=== PATIENT | female | born 2000 | race Caucasian/White ===

== ENCOUNTER 2021-01-29 10:58 | Day surgery (SDC) | payer BC ==
[~2021-01-29 10:58] MED LIST: EPINEPHrine 1 MG/ML 30 ML MDV IRR SCH; Lidocaine 1%/Sod Bicarbonate in NS 8.4% 1 ML Syringe IDERM PRN; Midazolam 1 MG/ML 2 ML SDV ONE; Propofol 200 MG/20 ML SDV ONE; Sodium Chloride 0.9% 10 ML Syringe FLUSH PRN; fentaNYL 100 MCG/2 ML SDV ONE
[2021-01-29] MEDS: Lactated Ringers 1,000 ML IV SCH ×2 (11:25→16:24)
[2021-01-29] MEDS ORDERED: Bupivacaine 0.25% 10 ML SDV ONE (11:28)
--- NOTE | 2021-01-29 11:59 | PCM.PREANE ---
Preanesthetic Assessment - Procedure Proposed Procedure: Left knee video arthroscopy with plica resection - Anesthesia/Transfusion/Family Hx Anesthesia History: Prior Anesthesia Without Reaction Family History of Anesthesia Reaction: No Transfusion History: No Prior Transfusion(s) - Review of Systems General: No Symptoms Pulmonary: No Symptoms Cardiovascular: No Symptoms Gastrointestinal: No Symptoms Neurological: No Symptoms Other: Reports: None - Physical Assessment NPO Status Date: 01/28/21 NPO Status Time: 00:00 Height: 1.83 m Weight: 83.7 kg ASA Class: 2 Mental Status: Alert & Oriented x3 Airway Class: Mallampati = 1 Dentition: Reports: Normal Dentition Thyro-Mental Finger Breadths: 3 Mouth Opening Finger Breadths: 3 ROM/Head Extension: Full Lungs: Clear to Auscultation, Normal Respiratory Effort Cardiovascular: Regular Rate, Regular Rhythm - Lab Values: Laboratory Last Values Urine HCG, Qual Negative (NEGATIVE) 01/29/21 11:05 - Allergies Allergies/Adverse Reactions: Allergies Allergy/AdvReac Type Severity Reaction Status Date / Time codeine Allergy Hives Verified 01/28/21 16:10 - Blood Blood Available: No Product(s) Available: None - Anesthesia Plan Pre-Op Medication Ordered: None - Acknowledgements Anesthesia Type Planned: General Anesthesia Pt an Appropriate Candidate for the Planned Anesthesia: Yes Alternatives and Risks of Anesthesia Discussed w Pt/Guardian: Yes Pt/Guardian Understands and Agrees with Anesthesia Plan: Yes PreAnesthesia Questionnaire Cardiovascular History: Reports: None Respiratory History: Reports: Asthma Gastrointestinal History: Reports: None Genitourinary History: Reports: None GRADE CHECKER History: Reports: Other (See Below) Other OB/BYN History: menorrhagia Musculoskeletal History: Reports: None Neurological History: Reports: None Psychiatric History: Reports: None Endocrine/Metabolic History: Reports: None Hematologic History: Reports: None Immunologic History: Reports: None Oncologic (Cancer) History: Reports: None Dermatologic History: Reports: Other (See Below) Other Dermatologic History: acne - Infectious Disease History Infectious Disease History: Reports: None - Past Surgical History Head Surgeries/Procedures: Reports: None HEENT Surgical History: Reports: Adenoidectomy Cardiovascular Surgical History: Reports: None Respiratory Surgical History: Reports: None GI Surgical History: Reports: None Female Surgical History: Reports: None Male Surgical History: Reports: None Endocrine Surgical History: Reports: None Neurological Surgical History: Reports: None Musculoskeletal Surgical History: Reports: None Oncologic Surgical History: Reports: None Dermatological Surgical History: Reports: None - SUBSTANCE USE Tobacco Use Status *Q: Never Tobacco User Tobacco Use Within Last Twelve Months: No Second Hand Smoke Exposure: No Days Per Week of Alcohol Use: 0 Number of Drinks Per Day: 0 Total Drinks Per Week: 0 Recreational Drug Use History: No - HOME MEDS Home Medications: Home Meds Albuterol Sulfate [Albuterol Sulfate HFA] 2 puff INH Q4H PRN 01/28/21 [History] Aspirin [Aspirin EC] 325 mg PO BID #84 tab 01/28/21 [Rx] Clindamycin Phosphate [Clindagel] 1 dose TOP DAILY 01/28/21 [History] Hydrocodone/Acetaminophen [HYDROcodone-Acetaminophen 5-325 MG] 1 each PO Q6H PRN #10 tablet 01/28/21 [Rx] norgestimate-ethinyl estradioL [Sprintec 28 Day Tablet] 1 tab PO DAILY 01/28/21 [History] - CURRENT (IN HOUSE) MEDS Current Meds: Current Medications Epinephrine HCl (Epinephrine 1 Mg/Ml 30 Ml Mdv) 3 mg IRR ONETIME JESSICA Stop: 01/29/21 16:00 Lactated Ringer's (Ringers, Lactated) 1,000 mls @ 125 mls/hr IV ASDIRECTED JESSICA Lidocaine/Sodium Bicarbonate (Lidocaine 1%/Sod Bicarbonate In Ns 8.4% 1 Ml Syringe) 0.25 ml IDERM ONETIME PRN PRN Reason: Prior to IV Start Sodium Chloride (Sodium Chloride 0.9% 10 Ml Syringe) 10 ml FLUSH ASDIRECTED PRN PRN Reason: Keep Vein Open Discontinued Medications Bupivacaine HCl (Bupivacaine 0.25% 10 Ml Sdv) Confirm Administered Dose 20 ml .ROUTE .STK-MED ONE Stop: 01/29/21 11:29 Fentanyl (Fentanyl 100 Mcg/2 Ml Sdv) Confirm Administered Dose 100 mcg .ROUTE .STK-MED ONE Stop: 01/29/21 10:48 Midazolam HCl (Midazolam 1 Mg/Ml 2 Ml Sdv) Confirm Administered Dose 2 mg .ROUTE .STK-MED ONE Stop: 01/29/21 10:48 Propofol (Propofol 200 Mg/20 Ml Sdv) Confirm Administered Dose 400 mg .ROUTE .STK-MED ONE Stop: 01/29/21 10:48
[2021-01-29] MEDS ORDERED: Ondansetron 4 MG/2 ML SDV ONE (12:00)
[2021-01-29] MEDS ORDERED: Propofol 200 MG/20 ML SDV ONE (12:06)
[2021-01-29] MEDS ORDERED: Lidocaine 1% 4 ML ONE (12:07)
[2021-01-29] MEDS ORDERED: Midazolam 1 MG/ML 2 ML SDV ONE (12:07)
[2021-01-29] MEDS ORDERED: fentaNYL 100 MCG/2 ML SDV ONE ×2 (12:07→12:48)
[2021-01-29] MEDS ORDERED: ceFAZolin 1 GM Vial ONE (12:33)
[2021-01-29] MEDS ORDERED: Lactated Ringers 1,000 ML ONE (12:39)
--- NOTE | 2021-01-29 13:33 | PCM.POSTAN ---
POST ANESTHESIA ASSESSMENT - MENTAL STATUS Mental Status: Alert, Oriented - VITAL SIGNS Vital Signs: Last Vital Signs Temp 37.2 C 01/29/21 11:15 Pulse 82 01/29/21 11:15 Resp 17 01/29/21 11:15 BP 140/79 01/29/21 11:30 Pulse Ox 97 01/29/21 11:15 - RESPIRATORY Respiratory Status: Respiratory Rate WNL, Airway Patent, O2 Saturation Stable - CARDIOVASCULAR CV Status: Pulse Rate WNL, Blood Pressure Stable - GASTROINTESTINAL GI Status: No Symptoms - PAIN Pain Score: 0 - POST OP HYDRATION Hydration Status: Adequate & Stable
[2021-01-29] MEDS ORDERED: Ondansetron 4 MG/2 ML SDV IVPUSH PRN (13:36)
[2021-01-29] MEDS ORDERED: fentaNYL 100 MCG/2 ML SDV IVPUSH PRN (13:36)
--- NOTE | 2021-01-29 13:51 | PCM48HPAN ---
Post Anesthesia Note - EVALUATION WITHIN 48HRS OF ANESTHETIC Vital Signs in Normal Range: Yes Patient Participated in Evaluation: Yes Respiratory Function Stable: Yes Airway Patent: Yes Cardiovascular Function Stable: Yes Hydration Status Stable: Yes Pain Control Satisfactory: Yes Nausea and Vomiting Control Satisfactory: Yes Mental Status Recovered: Yes Vital Signs: Last Vital Signs Temp 36.6 C 01/29/21 13:45 Pulse 73 01/29/21 13:45 Resp 9 L 01/29/21 13:45 BP 118/73 01/29/21 13:45 Pulse Ox 98 01/29/21 13:45
--- NOTE | 2021-02-09 07:14 | PCM.OPNOTE ---
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
--- NOTE | 2021-02-09 07:56 | OR ---
DATE OF OPERATION: 01/29/2021 SURGEON: Portillo Liu MD OPERATION PERFORMED: Left knee video arthroscopy with plica resection/partial synovectomy. PREOPERATIVE DIAGNOSIS: Left knee painful plica syndrome. POSTOPERATIVE DIAGNOSIS: Left knee painful plica syndrome. ANESTHESIA: General LMA with local. ANESTHESIA PROVIDER: Lillie Page CRNA. BITUMINOUS DISTRIBUTOR OPERATOR: Kathryn Mccurdy PA-C ESTIMATED BLOOD LOSS: Less than 5 mL. COMPLICATIONS: None. CONDITION: Stable. DESCRIPTION OF PROCEDURE: The patient was identified in the preoperative holding area where proper site was marked, identified by the surgeon. The patient was taken back to the operative theater, where after adequate anesthesia, right lower extremity was placed in a well leg andrade, left lower extremity had a nonsterile tourniquet applied. C-clamp andrade was then applied. Foot of the bed was lowered. Left lower extremity was then sterilely prepped and draped in usual sterile fashion. OR time-out was performed. The patient received 2 g of IV Ancef. Left lower extremity was exsanguinated, tourniquet was then insufflated to 250 mmHg. Standard anterolateral portal incision was made. Scope trocar was introduced. The patient at this time was noted to have no significant chondromalacia of the patella. She was noted to have a large plica medially as well as some irritation of the fat pad. Attention was turned to the medial compartment. With the use of a spinal needle, anteromedial portal was created. The patient had no meniscal tear and no chondromalacia of the medial compartment. ACL and PCL were intact in the notch. Lateral compartment showed no chondromalacial changes or meniscal tear. Attention was turned back to the plica. Plica resection as well as partial fat pad resection was done back to a stable rim. At this time, excess saline was drained from the knee. 0.25% Marcaine was injected to the portal incisions. 3-0 nylon sutures were placed in the portal incisions. The patient had a sterile soft dressing applied and sent to the PACU in stable condition. MMODAL /[id number]
== END 2021-01-29 15:43 | disposition home or self-care (01) ==
LOC: JD.SDS 10:58
PROVIDERS: ATTEND Orthopaedic Surgery
DX: M67.52 Plica syndrome, left knee (principal); J45.990 Exercise induced bronchospasm; Z79.899 Other long term (current) drug therapy; Z88.5 Allergy status to narcotic agent; Z98.890 Other specified postprocedural states
CPT/HCPCS: 29875; 81025; J0171; J0690; J2250; J2704; J3010; J3490; J7120; 01400; J2405